=== PATIENT | female | born 1970 | race Caucasian/White ===

== ENCOUNTER 2020-03-18 21:38 | Inpatient (IN) ==
[2020-03-18] MEDS ORDERED: *HR* LORazepam 1 MG TABLET PO PRN (23:35)
[2020-03-18] MEDS ORDERED: *HR* LORazepam 2 MG/ML VIAL IM PRN (23:35)
[2020-03-18] MEDS ORDERED: Acetaminophen 325 MG TABLET PO PRN (23:35)
[2020-03-18] MEDS ORDERED: Haloperidol Lactate 5 MG/ML VIAL IM PRN (23:35)
[2020-03-18] MEDS ORDERED: haloperidoL 5 MG TABLET PO PRN (23:35)
[2020-03-18] MEDS ORDERED: MOM Conc 10 ML UD.LIQ PO PRN (23:35)
[2020-03-18] MEDS ORDERED: Mag Hydrox/Al Hydrox/Simeth 30 ML UDC PO PRN (23:35)
[2020-03-19] MEDS: PARoxetine 20 MG TABLET PO SCH (14:37)
[2020-03-19] MEDS: hydroCHLOROthiazide 25 MG TABLET PO SCH (14:38)
[2020-03-19] MEDS: (Armodafinil [Armodafinil] 250 MG) PO SCH (14:38)
[2020-03-19] MEDS: hydrOXYzine pamoate 25 MG CAPSULE PO PRN (20:26)
[2020-03-19] MEDS: traZODone 50 MG TABLET PO PRN (20:26)
[2020-03-19] MEDS: ARIPiprazole 5 MG TABLET PO SCH (20:26)
[2020-03-20] MEDS: hydroCHLOROthiazide 25 MG TABLET PO SCH (09:37)
[2020-03-20] MEDS: PARoxetine 20 MG TABLET PO SCH (09:37)
[2020-03-20] MEDS: (Armodafinil [Armodafinil] 250 MG) PO SCH (09:42)
[2020-03-20] MEDS: traZODone 50 MG TABLET PO PRN (20:27)
[2020-03-20] MEDS: hydrOXYzine pamoate 25 MG CAPSULE PO PRN (20:27)
[2020-03-20] MEDS: ARIPiprazole 5 MG TABLET PO SCH (20:27)
[2020-03-21] MEDS: PARoxetine 20 MG TABLET PO SCH (09:20)
[2020-03-21] MEDS: hydroCHLOROthiazide 25 MG TABLET PO SCH (09:20)
[2020-03-21] MEDS: (Armodafinil [Armodafinil] 250 MG) PO SCH (09:35)
[2020-03-21 10:00] VITALS: BP 106/74
== END 2020-03-21 13:40 | disposition home or self-care (01) | DRG 751 ==
LOC: EMEROOARM 21:38 → 1ANU 23:25
PROVIDERS: ADMIT Psychiatry & Neurology Psychiatry; ATTEND Psychiatry & Neurology Psychiatry